=== PATIENT | female | born 1935 | race Caucasian/White ===

== ENCOUNTER 2020-02-28 15:06 | Inpatient (IN) | payer MEDICARE, OTHER ==
[~2020-02-28] VITALS: Ht 160 cm; Wt 66.7 kg
[2020-02-28] MEDS ORDERED: AMLO5TAB9 PO (15:36)
[2020-02-28] MEDS ORDERED: LIDO1ADH71 TP (15:36)
[2020-02-28] MEDS ORDERED: CYCL5TAB PO (15:36)
[2020-02-28] MEDS ORDERED: LORA-259 PO (15:36)
[2020-02-28] MEDS ORDERED: TRAM50TA2 PO (15:36)
[2020-02-28] MEDS ORDERED: ACET325T53 PO (15:36)
[2020-02-28] MEDS ORDERED: VALS80TA2 PO (15:36)
[2020-02-28] MEDS ORDERED: ESCI10TA PO (15:36)
[2020-02-28] MEDS ORDERED: NALO25TA PO (15:36)
[2020-02-28] MEDS ORDERED: SITA50TA PO (15:36)
[2020-02-28] MEDS ORDERED: ICOS1CAP PO (15:36)
[2020-02-28] MEDS ORDERED: GABA-532 PO (15:36)
[2020-02-28] MEDS ORDERED: MAGN296S70 PO (15:36)
[2020-02-28] MEDS ORDERED: LEVO50TA8 PO (15:36)
[2020-02-28] MEDS ORDERED: SENN1TAB77 PO (15:36)
[2020-02-28] MEDS ORDERED: VENL75CA62 PO (15:36)
[2020-02-28] MEDS ORDERED: triamcinolone TP (15:36)
[2020-02-28] MEDS ORDERED: FENO145T21 PO (15:36)
--- NOTE | 2020-02-28 15:40 | NUR ---
PT IS IN ROOM #2A. DR DUBON EVALUATED THE PT.
--- NOTE | 2020-02-28 16:53 | NUR ---
REPORT WAS GIVEN TO U RN. PT WASTRANSFERED TO U ROOM #139A.
[2020-02-28 17:30] VITALS: BP 164/74
[2020-02-28] MEDS ORDERED: LORAZEPAM 0.5 MG TABLET PO PRN (17:30)
[2020-02-28] MEDS ORDERED: MAG HYDROX/AL HYDROX/SIMETH 30 ML LIQUID UDC PO PRN (17:30)
[2020-02-28] MEDS ORDERED: ACETAMINOPHEN 325 MG TABLET PO PRN (17:30)
--- NOTE | 2020-02-28 17:30 | NUR ---
Gps/Private Household Worker- Admitted an 84 years old female from ER, with the information from [facility], that pt. had suicidal attempt.Upon face to face encounter with patient , she denies suicidal attempt, claimed she does not want to hurt herself. Per patent she took couple of zinc , vitamins to prevent her from getting sick, she claimed she's not sleeping well at night . Per Patient had recent of her nephew, about 3 years ago years ago , she feeling sad from time to time, patient stated" i am not crazy,i dont need to be here" . She complained of long history of chronic lower back pain, right shoulder pain from previous hx of tendonitis, limited ROM. Oriented to unit settings.
[2020-02-28] MEDS ORDERED: TRAMADOL HCL 50 MG TABLET PO PRN (17:45)
[2020-02-28 21:03] VITALS: BP 131/41
[2020-02-28] MEDS: CYCLOBENZAPRINE HCL 10 MG TABLET PO SCH (21:04)
[2020-02-28] MEDS: TEMAZEPAM 7.5 MG CAPSULE PO PRN (22:34)
[2020-02-29 07:30] VITALS: BP 138/56
[2020-02-29 08:10] LABS: BILIRUBIN,TOTAL 0.4 mg/dL (0.2-1.0); CREATININE 1.3 mg/dL (0.6-1.3); POTASSIUM 4.4 mmol/L (3.5-5.1); TOTAL PROTEIN, SERUM 6.8 g/dL (6.4-8.2)
[2020-02-29] MEDS: LINAGLIPTIN 5 MG TABLET PO SCH (08:45)
[2020-02-29] MEDS: GABAPENTIN 100 MG CAPSULE PO SCH ×3 (08:45→18:00)
[2020-02-29] MEDS: LEVOTHYROXINE SODIUM 50 MCG TABLET PO SCH (08:46)
[2020-02-29] MEDS: FENOFIBRATE NANOCRYSTALLIZED 145 MG TABLET PO SCH (08:46)
[2020-02-29] MEDS: AMLODIPINE 5 MG TABLET PO SCH (08:46)
[2020-02-29] MEDS: VALSARTAN 80 MG TABLET PO SCH (08:48)
[2020-02-29] MEDS ORDERED: ACETAMINOPHEN 325 MG TABLET PO SCH (09:00)
--- NOTE | 2020-02-29 10:38 | NUR ---
Social Work Initial Discharge Plan: Patient currently resides at [address] [facility] [address] [place] [address] ([phone]) with daughter Jelly. Per daughter Jelly ([phone]) would want patient to return back home upon discharge. This automotive service writer will work with the MD, treatment team, and family to help coordinate proper discharge for patient.
--- NOTE | 2020-02-29 10:38 | NUR ---
Social Work Family Contact: template worker spoke with patient's daughter Jelly ([phone]) and discussed patient's treatment plan and discharge plan.
[2020-02-29 12:28] LABS: *BILIRUBIN,URIN NEGATIVE (NEGATIVE); *BLOOD, URINE NEGATIVE (NEGATIVE); *CLARITY,URINE SLIGHTLY CLOUDY (CLEAR); *COLOR,URINE YELLOW (YELLOW); *KETONES,URINE NEGATIVE (NEGATIVE); *UROBILINOGEN,URINE 0.2 E.U./dl (NORMAL); LEUKOCYTE ESTERASE ,URINE NEGATIVE (NEGATIVE); NITRITE, URINE NEGATIVE (NEGATIVE); UGLUCOSE NEGATIVE (NEGATIVE)
[2020-02-29 12:32] LABS: *CREATININE,URINE 134.9 mg/dL (30-125); *URINE TOTAL PROTEIN RANDOM 11.4 mg/dL (<150/24HR)
[2020-02-29] MEDS: MAGNESIUM HYDROXIDE 30 ML LIQUID UDC PO PRN (14:51)
--- NOTE | 2020-02-29 15:25 | NUR ---
Social Work Coordination of Care: skid road worker contacted patient's primary doctor office Dr. Jorge ([phone]) and spoke with Jade who scheduled an appointment for patient on March 10 at 2:30PM via telephone. skid road worker contacted [facility] ([phone]) and spoke with officer of laura Cash for intake evaluation (psychiatrist) on March 07 1:30PM VIA telephone.
[2020-02-29 15:30] VITALS: BP 124/53
--- NOTE | 2020-02-29 15:43 | NUR ---
Gps/Baking Factory Worker- Patient's daughter Jelly called,, spoked to patient, claimed her Moms' hold is up, and she is ready to be released this pm , started at [facility] per daughter.. Jelly (daughter) spoke to Education Supervisor explained about her hold .
[2020-02-29 17:22] LABS: BACTERIA,URINE NONE SEEN /HPF (NONE SEEN); RBC,URINE 0-3 /HPF (0-3); SQUAMOUS EPITHELIAL CELL,UR FEW /HPF (NONE SEEN); WBC,URINE 0-3 /HPF (0-3)
[2020-02-29 20:00] VITALS: BP 120/56
[2020-02-29] MEDS: CYCLOBENZAPRINE HCL 10 MG TABLET PO SCH (21:21)
[2020-03-01 07:30] VITALS: BP 128/65
[2020-03-01] MEDS: LINAGLIPTIN 5 MG TABLET PO SCH (08:32)
[2020-03-01] MEDS: LEVOTHYROXINE SODIUM 50 MCG TABLET PO SCH (08:32)
[2020-03-01] MEDS: GABAPENTIN 100 MG CAPSULE PO SCH ×3 (08:32→17:41)
[2020-03-01] MEDS: AMLODIPINE 5 MG TABLET PO SCH (08:34)
[2020-03-01] MEDS: VALSARTAN 80 MG TABLET PO SCH (08:34)
[2020-03-01] MEDS: FENOFIBRATE NANOCRYSTALLIZED 145 MG TABLET PO SCH (08:34)
[2020-03-01 10:37] LABS: BASOPHILS % (AUTO) 0.6 % (0.0-2.0); EOSINOPHILS # (AUTO) 0.1 K/uL (0.0-0.7); EOSINOPHILS % (AUTO) 1.2 % (0.0-7.0); HEMATOCRIT 38.7 % (31.2-41.9); HEMOGLOBIN 12.8 g/dL (10.9-14.3); LYMPHOCYTES # (AUTO) 1.6 K/uL (20.0-40.0); LYMPHOCYTES % (AUTO) 27.3 % (20.5-51.5); MEAN CORPUSCULAR HEMOGLOBIN 30.3 uug (24.7-32.8); MEAN CORPUSCULAR HGB CONC 33 g/dL (32.3-35.6); MEAN CORPUSCULAR VOLUME 91.4 fL (75.5-95.3); MONOCYTES # (AUTO) 0.5 K/uL (2.0-10.0); MONOCYTES % (AUTO) 8.1 % (0.0-11.0); NEUTROPHILS # (AUTO) 3.7 K/uL (1.8-8.9); NEUTROPHILS % (AUTO) 62.8 % (38.5-71.5); PLATELET COUNT (AUTO) 399 K/uL (179-408); RED BLOOD CELL COUNT(AUTO) 4.24 MIL/uL (3.63-4.92); WHITE BLOOD COUNT (AUTO) 5.9 K/uL (3.8-11.8)
[2020-03-01 10:56] LABS: BILIRUBIN,TOTAL 0.4 mg/dL (0.2-1.0); CREATININE 1.3 mg/dL (0.6-1.3); MAGNESIUM 2.5 mg/dL (1.8-2.4); PHOSPHOROUS 3.5 mg/dL (2.5-4.9); POTASSIUM 4.5 mmol/L (3.5-5.1); TOTAL PROTEIN, SERUM 7.2 g/dL (6.4-8.2)
[2020-03-01] MEDS: VENLAFAXINE XR 75 MG TAB.ER.24H PO SCH (13:23)
[2020-03-01 16:00] VITALS: BP 126/59
[2020-03-01 20:00] VITALS: BP 126/60
[2020-03-01] MEDS: CYCLOBENZAPRINE HCL 10 MG TABLET PO SCH (21:08)
[2020-03-01] MEDS: TEMAZEPAM 7.5 MG CAPSULE PO PRN (22:55)
[2020-03-02 07:30] VITALS: BP 109/62
[2020-03-02] MEDS: GABAPENTIN 100 MG CAPSULE PO SCH ×3 (08:35→17:29)
[2020-03-02] MEDS: LINAGLIPTIN 5 MG TABLET PO SCH (08:35)
[2020-03-02] MEDS: LEVOTHYROXINE SODIUM 50 MCG TABLET PO SCH (08:35)
[2020-03-02] MEDS: VALSARTAN 80 MG TABLET PO SCH (08:36)
[2020-03-02] MEDS: AMLODIPINE 5 MG TABLET PO SCH (08:37)
[2020-03-02] MEDS: FENOFIBRATE NANOCRYSTALLIZED 145 MG TABLET PO SCH (08:45)
[2020-03-02] MEDS: VENLAFAXINE XR 75 MG TAB.ER.24H PO SCH (12:31)
[2020-03-02] MEDS: MAGNESIUM HYDROXIDE 30 ML LIQUID UDC PO PRN (12:48)
[2020-03-02 15:22] VITALS: BP 104/52
[2020-03-02] MEDS: BLOOD SUGAR DIAGNOSTIC 1 EACH STRIP VI SCH (16:46)
--- NOTE | 2020-03-02 17:30 | NUR ---
Gps/Head Neck Surgeon- Stayed in her room most of the day, comes out to the Nurses station to ask for her simple needs. Claimed she is constipated, warm prune juice was given, with no result, requested MOM 30 ml given , still no reslts, adequate fluid intake, passing out gas per pt. Interacting with her roommate.
[2020-03-02 20:28] VITALS: BP 121/58
[2020-03-02] MEDS: CYCLOBENZAPRINE HCL 10 MG TABLET PO SCH (20:29)
--- NOTE | 2020-03-03 06:02 | NUR ---
Patient slept 6 hours last night. I believe she was woken up by the patient in the next bed whom is forgetful and confused. Patient is compliant with medication. Monitoring patient closely for safety, pain, SI or any form of distress.
[2020-03-03] MEDS: BLOOD SUGAR DIAGNOSTIC 1 EACH STRIP VI SCH (06:27)
[2020-03-03 07:30] VITALS: BP 128/67
[2020-03-03] MEDS: FENOFIBRATE NANOCRYSTALLIZED 145 MG TABLET PO SCH (08:29)
[2020-03-03] MEDS: GABAPENTIN 100 MG CAPSULE PO SCH ×2 (08:29→12:32)
[2020-03-03] MEDS: LINAGLIPTIN 5 MG TABLET PO SCH (08:29)
[2020-03-03 08:30] VITALS: BP 128/67
[2020-03-03] MEDS: AMLODIPINE 5 MG TABLET PO SCH (08:30)
[2020-03-03] MEDS: LEVOTHYROXINE SODIUM 50 MCG TABLET PO SCH (08:30)
[2020-03-03] MEDS: VALSARTAN 80 MG TABLET PO SCH (08:30)
--- NOTE | 2020-03-03 11:00 | NUR ---
Social Work Individual Therapy Note: tnt powder worker met with patient for brief counseling. tnt powder worker assessed for patient's level of suicidality. Patient denies SI. Patient stated that she was never "SI" and that she wants to go back home. Patient stated that she is "happier at home". This film writer actively listened and provided emotional support.
--- NOTE | 2020-03-03 11:10 | NUR ---
Social Work Family Contact: case worker spoke with patient's daughter Jelly ([phone]) is aware and agreeable with discharge. Patient's daughter stated that they are resided at [address] [address]; ([phone]).
--- NOTE | 2020-03-03 11:13 | NUR ---
Social Work Discharge Note: Patient will be discharged home to [address] [address]; ([phone]). Patient will be provided with taxi and will be picked up at 1:30PM. Patients daughter Jelly ([phone]) is aware and agreeable with discharge plan. Upon discharge, patient appears to be calm, cooperative and happy to be going home. Patient denies suicidal and homicidal ideation. Patient is alert and oriented x3-4. Patient will follow up with (Urban Planning Professor) Dr. Jorge [address] [place] [address], [address] [place] [address]; ([phone]) on March 10 at 2:30PM via telephone. Patient is referred to [facility] [address] [place] [address]; ([phone]) for intake evaluation (psychiatrist) on March 07 1:30PM via telephone. Patient was provided with outpatient mental health resources to [facility] Crisis Line , and the National Suicide Prevention Lifeline . Patient presented with euthymic mood and congruent affect.
--- NOTE | 2020-03-03 11:22 | NUR ---
Social Work Firearm Report: Religious Healer completed and submitted a [employer] firearms report for 5150 grave disability certification. A copy of report has been placed in patient chart.
[2020-03-03] MEDS: VENLAFAXINE XR 75 MG TAB.ER.24H PO SCH (12:32)
--- NOTE | 2020-03-03 14:30 | NUR ---
GPS: Nursing Notes: Discharge Notes: Patient is awake and responding to her name, cooperative with nursing care, compliant with her medications, following staff directions, denies any SI/HI, denies any AH/VH, denies any discomfort or pain, denies any SOB, discharge home to her daughter - Jelly at [address] [address], took all her belongings with her, A/Ox4, instructions and prescription given to patient, transported home via Taxi, escorted to taxi via w/c. Patient will follow up with (Printed Circuit Board Pcb Designer) Dr. Jorge [address] [place] [address], [address] [place] [address]; ([phone]) on March 10 at 2:30PM via telephone. Patient is referred to [facility] [address] [place] [id number]; ([phone]) for intake evaluation (psychiatrist) on March 07 1:30PM via telephone. Patient was provided with outpatient mental health resources to [facility] Crisis Line , and the National Suicide Prevention Lifeline .
[2020-03-04 12:34] LABS: ALBUMIN 3.2 g/dL (2.9-4.4); ALPHA-1-GLOBULIN 0.3 g/dL (0.0-0.4); ALPHA-2-GLOBULIN 0.9 g/dL (0.4-1.0); BETA GLOBULIN 1.2 g/dL (0.7-1.3); GAMMA GLOBULIN 0.7 g/dL (0.4-1.8); GLOBULIN, TOTAL 3.1 g/dL (2.2-3.9); M-SPIKE Not Observed g/dL (Not Observed)
== END 2020-03-03 14:30 | disposition home or self-care (01) | DRG 885 ==
LOC: ER 15:06 → GPS 16:29
PROVIDERS: ADMIT Psychiatry & Neurology Psychosomatic Medicine; ATTEND Internal Medicine
DX: F33.2 Major depressive disorder, recurrent severe without psychotic features (principal); F01.50 Vascular dementia, unspecified severity, without behavioral disturbance, psychotic disturbance, mood disturbance, and anxiety; N17.0 Acute kidney failure with tubular necrosis; R45.851 Suicidal ideations; E03.9 Hypothyroidism, unspecified; E78.5 Hyperlipidemia, unspecified; T40.4X Poisoning by, adverse effect of and underdosing of other synthetic narcotics; G89.29 Other chronic pain; R73.03 Prediabetes; K59.09 Other constipation; F29 Unspecified psychosis not due to a substance or known physiological condition
CPT/HCPCS: 36415; 71045; 83735; 83970; 84100; 84155; 84156; 84165; 84300; 85025; A4663